=== PATIENT | male | born 1980 | race African-American/Black ===

== ENCOUNTER 2021-12-11 10:37 | Emergency (ER) | payer BC ==
[~2021-12-11] VITALS: Ht 180.3 cm; Wt 68.5 kg
[2021-12-11 10:53] VITALS: BP 140/84
[2021-12-11 12:12] LABS: CALCIUM 9.2 mg/dL (8.5-10.1); CREATININE 1.4 mg/dL (0.6-1.3); POTASSIUM 4.1 mmol/L (3.5-5.1)
[2021-12-11] MEDS ORDERED: TESSALON PERLE100 MG PO (13:59)
== END 2021-12-11 14:18 | disposition home or self-care (01) ==
LOC: M.ERS 10:37
PROVIDERS: Emergency Medicine Emergency Medical Services
DX: U07.1 COVID-19 (principal)